=== PATIENT | male | born 1990 | race Hispanic/Latino ===

== ENCOUNTER 2020-11-15 16:02 | Emergency (ER) | payer OTHER ==
[2020-11-15] MEDS ORDERED: LIDOCAINE HCL 1% 20 ML VIAL ONE (16:16)
== END 2020-11-15 18:25 | disposition home or self-care (01) ==
LOC: EDH 16:02
DX: S01.112A Laceration without foreign body of left eyelid and periocular area, initial encounter (principal); Z72.0 Tobacco use; X58.XXXA Exposure to other specified factors, initial encounter; Y93.71 Activity, boxing; Y92.89 Other specified places as the place of occurrence of the external cause; Y99.8 Other external cause status
CPT/HCPCS: 12011

== ENCOUNTER 2021-03-06 01:16 | Emergency (ER) | payer OTHER ==
[2021-03-06] MEDS ORDERED: ACETAMINOPHEN EXTRA STRENGTH 500 MG TABLET ONE (02:00)
[2021-03-06] MEDS ORDERED: IBUPROFEN 600 MG TABLET ONE (02:00)
== END 2021-03-06 02:08 | disposition home or self-care (01) ==
LOC: EDH 01:16
DX: Z02.89 Encounter for other administrative examinations (principal); M25.532 Pain in left wrist; M25.531 Pain in right wrist